=== PATIENT | female | born 1935 ===

== ENCOUNTER 2017-02-05 13:30 | Outpatient (RCR) | payer MEDICARE, OTHER ==
[~2017-02-05] VITALS: Ht 160 cm; Wt 57.2 kg
--- NOTE | 2017-02-05 16:49 | Diagnostic Imaging Report ---
Indication: PAIN Technique: Coronal, axial coronal and axial T1 fast spin-echo and fast spin-echo IR images of the pelvis, coronal, and sagittal proton density images of the right hip. Comparison: None Findings: Exam is somewhat limited, due to motion artifact, patient unable to stay still for the exam. There is edema of the subcutaneous fat of the right hip. A bubble of gas is seen within the area of edema in the right hip. No marrow abnormality of the right hip is demonstrated to suggest osteomyelitis. There is some bursal thickening on the right. No evidence of muscular tear or avascular necrosis is demonstrated There is increased IR and decreased T1 signal within the left greater trochanter. This is somewhat linear in distribution There is overlying edema of the subcutaneous fat and adjacent musculature. Impression: Findings compatible with acute or subacute nondisplaced fracture of the left greater trochanter, with evidence of overlying soft tissue contusion Soft tissue edema and apparent gas bubble in the right hip region, consistent with stated clinical history of soft tissue ulcer. No evidence of underlying osteomyelitis [facility] notified of the findings at the time of interpretation
[2017-02-06] MEDS ORDERED: Lidocaine HCl 2% Jelly 5ml Tube TOPIC ONE (16:00)
[2017-02-21] MEDS ORDERED: Lidocaine HCl 2% Jelly 5ml Tube TOPIC ONE (08:45)
== END 2017-02-20 | disposition home or self-care (01) ==
LOC: WCC 13:30
DX: L03.115 Cellulitis of right lower limb (principal); L97.113 Non-pressure chronic ulcer of right thigh with necrosis of muscle; L97.813 Non-pressure chronic ulcer of other part of right lower leg with necrosis of muscle; I10 Essential (primary) hypertension; E11.9 Type 2 diabetes mellitus without complications; F03.90 Unspecified dementia, unspecified severity, without behavioral disturbance, psychotic disturbance, mood disturbance, and anxiety; Z79.52 Long term (current) use of systemic steroids
CPT/HCPCS: 11043; 87070; 87181; 87205

== ENCOUNTER 2017-03-05 13:39 | Outpatient (RCR) | payer MEDICARE, OTHER ==
[~2017-03-05] VITALS: Ht 160 cm; Wt 57.2 kg
== END 2017-03-22 | disposition home or self-care (01) ==
LOC: WCC 13:39
DX: L03.115 Cellulitis of right lower limb (principal); L97.113 Non-pressure chronic ulcer of right thigh with necrosis of muscle; L97.813 Non-pressure chronic ulcer of other part of right lower leg with necrosis of muscle; Z88.2 Allergy status to sulfonamides; F03.90 Unspecified dementia, unspecified severity, without behavioral disturbance, psychotic disturbance, mood disturbance, and anxiety; E11.9 Type 2 diabetes mellitus without complications; I10 Essential (primary) hypertension
CPT/HCPCS: 11043

== ENCOUNTER 2017-04-02 13:30 | Outpatient (RCR) | payer MEDICARE, OTHER | END 2017-04-22 | disposition home or self-care (01) | LOC: WCC 13:30 | DX: L03.115 Cellulitis of right lower limb (principal); L97.113 Non-pressure chronic ulcer of right thigh with necrosis of muscle; L97.813 Non-pressure chronic ulcer of other part of right lower leg with necrosis of muscle; Z88.2 Allergy status to sulfonamides; F03.90 Unspecified dementia, unspecified severity, without behavioral disturbance, psychotic disturbance, mood disturbance, and anxiety; E03.9 Hypothyroidism, unspecified; I10 Essential (primary) hypertension; E11.9 Type 2 diabetes mellitus without complications; Z79.52 Long term (current) use of systemic steroids | CPT/HCPCS: G0463 ==